=== PATIENT | male | born 1945 | race Caucasian/White ===

== ENCOUNTER → 2020-12-24 | Outpatient (CLI) | payer MEDICARE, BC ==
--- NOTE | 2020-12-24 09:22 | US ---
EXAMINATION TYPE: US duplex aorta DATE OF EXAM: 12/24/2020 COMPARISON: NONE CLINICAL HISTORY: Z13.6 Screening for cardiovascular disorder. No HTN. No high cholesterol. No hx o f AAA or family hx of AAA. EXAM MEASUREMENTS: Abdominal Aorta: Proximal: 2.4 x 1.8 cm Mid: 1.8 x 2.1 cm Distal: 1.8 x 1.8 cm Bifurcation: Right- 1.2 x 1.3 cm Left- 0.9 x 1.4 cm No AAA visualized on todays exam. Portions of Aorta obscured by overlying bowel gas. IMPRESSION: No evidence for abdominal aortic aneurysm at this time.
== END ==
LOC: RADUSWWP 08:37
PROVIDERS: ATTEND Family Medicine
DX: Z13.6 Encounter for screening for cardiovascular disorders (principal)
CPT/HCPCS: 93979

== ENCOUNTER → 2023-07-21 | Outpatient (CLI) | payer MEDICARE, BC ==
--- NOTE | 2023-07-23 17:37 | US ---
EXAMINATION TYPE: US kidneys/renal and bladder DATE OF EXAM: 07/21/2023 COMPARISON: NONE CLINICAL INDICATION: Male, 77 years old with history of R28.9 RENAL INSUFFICIENCY; renal insufficienc y EXAM MEASUREMENTS: Right Kidney: 10.3 x 4.8 x 5.9 cm Left Kidney: 10.4 x 5.0 x 5.8 cm Right Kidney: No hydronephrosis or masses seen Left Kidney: No hydronephrosis or masses seen Bladder: appears wnl Bilateral Jets seen: No There is no evidence for hydronephrosis at this point in time. No nephrolithiasis is seen. No myra s are identified. Corticomedullary differentiation is maintained bilaterally. The urinary bladder is anechoic. Bilateral ureteral jets are not seen. IMPRESSION: No hydronephrosis or nephrolithiasis.
== END | disposition home or self-care (01) ==
LOC: RADUSWWP 13:34
PROVIDERS: ATTEND Internal Medicine
DX: N28.9 Disorder of kidney and ureter, unspecified (principal)
CPT/HCPCS: 76770

== ENCOUNTER → 2024-08-16 | Outpatient (CLI) | payer MEDICARE, BC ==
--- NOTE | 2024-08-16 09:21 | US ---
EXAMINATION TYPE: US liver DATE OF EXAM: 08/16/2024 COMPARISON: NONE CLINICAL INDICATION: Male, 78 years old with history of E80.6 HYPERBILIRUBIN; Elevated liver enzymes TECHNIQUE: Grayscale and color Doppler imaging of the right upper quadrant was performed. FINDINGS: EXAM MEASUREMENTS: Liver Length: 14.1 cm Gallbladder Wall: .3 cm CBD: .4 cm Right Kidney: 9.7 x 4.1 x 5.1 cm DIE KEEPER NOTES: Pancreas: Obscured by bowel gas Liver: Increased attenuation Gallbladder: wnl Evidence for sonographic Reed's sign: no CBD: wnl Right Kidney: wnl IMPRESSION: 1. No evidence for acute process. 2. Hepatic steatosis. [facility], , 08/16/2024 9:18 AM
== END | disposition home or self-care (01) ==
LOC: RADUSWWP 08:11
PROVIDERS: ATTEND Internal Medicine
DX: K76.0 Fatty (change of) liver, not elsewhere classified (principal); E80.6 Other disorders of bilirubin metabolism
CPT/HCPCS: 76705